=== PATIENT | female | born 1940 | race Caucasian/White ===

== ENCOUNTER 2019-04-06 11:17 | Inpatient (IN) | payer OTHER ==
[~2019-04-06] VITALS: Ht 167.6 cm; Wt 51.3 kg
[~2019-04-06 11:17] MED LIST: AMLO10TA7 PO; CEPH500C2 PO; HYDR25TA PO; TRAM50TA4 PO
[2019-04-06 11:50] LABS: BASOPHILS % (AUTO) 0.4 % (0.0-5.0); EOSINOPHILS % (AUTO) 0.2 % (0.0-8.0); HEMATOCRIT 34.3 % (36-48); LYMPHOCYTES % (AUTO) 6.9 % (21.0-51.0); MEAN CORPUSCULAR HEMOGLOBIN 27.2 pg (27.0-33.0); MEAN CORPUSCULAR HGB CONC 31.9 g/dL (32.0-36.0); MEAN CORPUSCULAR VOLUME 85.3 fL (79-99); MONOCYTES % (AUTO) 6.1 % (3.0-13.0); NEUTROPHILS % (AUTO) 86.4 % (40.0-77.0); PLATELET COUNT (AUTO) 577 K/uL (130-400); RED BLOOD CELL COUNT(AUTO) 4.02 MIL/uL (4.00-5.50); WHITE BLOOD COUNT (AUTO) 14.8 K/uL (4.8-10.8)
[2019-04-06 12:00] LABS: CREATININE 1.1 mg/dL (0.5-1.5); POTASSIUM 4.5 mmol/L (3.5-5.1)
[2019-04-06 12:03] LABS: INR 1.06 (0.85-1.15); PARTIAL THROMBOPLASTIN TIME 34.3 SEC (26.3-35.5); PROTHROMBIN TIME 11.1 SEC (9.6-11.6)
[2019-04-06 12:05] LABS: BILIRUBIN,TOTAL 0.3 mg/dL (0.2-1.0); TOTAL PROTEIN, SERUM 7.9 g/dL (6.0-8.3)
[2019-04-06] MEDS ORDERED: KETOROLAC TROMETHAMINE 15MG/ML ONE (12:20)
[2019-04-06 12:21] LABS: B-TYPE NATRIURETIC PEPTIDE 44 pg/mL (0-100)
[2019-04-06] MEDS ORDERED: ONDANSETRON HCL 4 MG/2 ML VIAL ONE (12:30)
[2019-04-06] MEDS ORDERED: OSELTAMIVIR PHOSPHATE 75 MG CAP ONE (12:31)
[2019-04-06] MEDS ORDERED: SODIUM CHLORIDE 0.9% 1000ML 1,000 ML IV ONE ×3 (12:31→18:31)
[2019-04-06 12:44] LABS: APPEARANCE,URINE Clear (CLEAR); BILIRUBIN,URINE Negative (NEGATIVE); COLOR,URINE Yellow (YELLOW); GLUCOSE, URINE (UA) Negative (NEGATIVE); KETONES,URINE Negative (NEGATIVE); LEUKOCYTE ESTERASE ,URINE Trace (NEGATIVE); NITRATE,URINE Negative (NEGATIVE); OCCULT BLOOD,URINE Negative (NEGATIVE); PROTEIN,URINE POS 1+ mg/dL (NEGATIVE)
[2019-04-06 12:46] LABS: CRP QUANTITATIVE 248.4 mg/L (0.00-9.0)
[2019-04-06] MEDS ORDERED: DiphenhydrAMINE HCL 50 MG/ML VIAL ONE (12:56)
[2019-04-06 13:02] LABS: BACTERIA,URINE Rare /HPF (None Seen); HYALINE CASTS, URINE 0-1 /LPF (0-1 /LPF); MUCUS,URINE Rare LPF (None Seen); RBC,URINE 0-1 /HPF (0-1); SQUAMOUS EPITHELIAL CELL,UR Few /HPF (0-2); WBC,URINE 0-1 /HPF (0-1)
[2019-04-06] MEDS ORDERED: IPRATROPIUM/ALBUTEROL SULFATE 3 ML SOLUTION IH ONE (13:07)
[2019-04-06] MEDS: SODIUM CHLORIDE 0.9% 1000ML 1,000 ML IV SCH (15:52)
[2019-04-06] MEDS ORDERED: ONDANSETRON HCL 4 MG/2 ML VIAL IV PRN (16:00)
[2019-04-06] MEDS ORDERED: ACETAMINOPHEN 325 MG TAB PO PRN ×2 (16:00)
[2019-04-06] MEDS: DOXYCYCLINE 100MG+NS 250ML 250 ML IV SCH (16:00)
[2019-04-06] MEDS ORDERED: HYDRALAZINE HCL 20 MG/ML VIAL IV PRN (16:00)
[2019-04-06] MEDS: METHYLPREDNISOLONE SOD SUCC 125MG/2ML VIAL IV SCH ×2 (16:00→23:53)
[2019-04-06 16:21] LABS: HEMOGLOBIN A1C 7.1 % (4.0-6.0)
[2019-04-06 17:22] LABS: PHOSPHORUS 3.7 mg/dL (2.5-4.9)
[2019-04-06] MEDS: ALBUTEROL SULFATE 0.083% 2.5 MG/3 ML INH IH SCH ×2 (17:34→21:25)
[2019-04-06] MEDS ORDERED: METHYLPREDNISOLONE SOD SUCC 40MG/ML 1ML ONE (18:31)
[2019-04-06] MEDS ORDERED: DOXYCYCLINE 100MG+NS 250ML 250 ML IV ONE (18:31)
[2019-04-06 19:20] VITALS: BP 114/58
--- NOTE | 2019-04-06 19:20 | NUR ---
ADMIT PT RECEIVED FROM PILOT SAFETY INSPECTOR, AAOX3. CLAIMS OF GENERALIZED ACHING WHEN BEING MOVED. ADMISSION CARE DONE. IVF AND IV ANTIBIOTICS FROM ER CONTINUED, PLACED ON IV PUMP. PLACED COMFORTABLY IN BED WITH HOB ELEVATED. V/S MONITORED, STABLE. IN FOR MORE CARE AND MANAGEMENT. Addendum: 04/06/19 at 2150 by TEODORO SHERWOOD RN RN Amended: Links added.
[2019-04-06] MEDS: OSELTAMIVIR PHOSPHATE 75 MG CAP PO SCH (20:20)
[2019-04-06] MEDS: FAMOTIDINE/PF 20 MG/2 ML VIAL IV SCH (20:20)
--- NOTE | 2019-04-06 20:20 | NUR ---
MEDS ASSESSMENT DONE, PLEASE REFER TO CPOE. DUE MEDS ADMINISTERED, TOLERATED WELL. PT OFFERED TYLENOL PO FOR HER ACHES BUT REFUSED AT THIS TIME. CALL LIGHT WITHIN REACH. WILL MONITOR PT.
[2019-04-06] MEDS ORDERED: SODIUM CHLORIDE 3% FOR INHALATION 4 ML/AMP VIAL.NEB IH ONE (21:24)
--- NOTE | 2019-04-06 21:40 | NUR ---
PAGED PT ALREADY ASLEEP WITH RESPIRATIONS EVEN AND UNLABORED. NO DISTRESS NOTED. KEPT UNDISTURBED FOR NOW. MAINTAINED ON O2 AT 2LPM VIA NC. WILL MONITOR PT.
[2019-04-07] VITALS: BP 134/65
[2019-04-07] MEDS: SODIUM CHLORIDE 0.9% 1000ML 1,000 ML IV SCH ×4 (01:07→21:52)
[2019-04-07] MEDS: ALBUTEROL SULFATE 0.083% 2.5 MG/3 ML INH IH SCH ×3 (01:25→10:08)
--- NOTE | 2019-04-07 02:00 | NUR ---
ROUNDS PT RESTING WELL, FAIRLY ASLEEP WITH RESPIRATIONS EVEN AND UNLABORED. NO NOTED DISTRESS. KEPT UNDISTURBED FOR NOW. WILL CONTINUE TO MONITOR. CALL LIGHT WITHIN REACH.
[2019-04-07 04:00] VITALS: BP 120/58
[2019-04-07] MEDS ORDERED: DOXYCYCLINE 100MG+NS 250ML 250 ML IV ONE (04:14)
[2019-04-07] MEDS: DOXYCYCLINE 100MG+NS 250ML 250 ML IV SCH ×2 (04:22→15:42)
--- NOTE | 2019-04-07 05:00 | NUR ---
[facility] PCP IN AND GAVE PT A BED BATH, TOLERATED ACTIVITY WELL. WAFFLE MATTRESS PLACED ON PT'S BED. KEPT RESTED AND COMFORTABLE WITH HOB ELEVATED. MAINTAINED ON O2 AT 2LPM VIA NC. FOR MORE CARE.
[2019-04-07] MEDS ORDERED: SODIUM CHLORIDE 3% FOR INHALATION 4 ML/AMP VIAL.NEB IH ONE ×2 (05:56→09:53)
[2019-04-07 08:00] VITALS: BP 127/57
[2019-04-07] MEDS: CETIRIZINE HCL 5 MG TABLET PO SCH (08:19)
[2019-04-07] MEDS: OSELTAMIVIR PHOSPHATE 75 MG CAP PO SCH ×2 (08:19→20:58)
[2019-04-07] MEDS: METHYLPREDNISOLONE SOD SUCC 125MG/2ML VIAL IV SCH ×2 (08:20→15:42)
[2019-04-07] MEDS: FAMOTIDINE/PF 20 MG/2 ML VIAL IV SCH ×2 (08:20→20:57)
[2019-04-07] MEDS: ENOXAPARIN SODIUM 40 MG/0.4 ML SYRINGE SQ SCH (08:20)
[2019-04-07 12:00] VITALS: BP 107/54
[2019-04-07] MEDS: IPRATROPIUM/ALBUTEROL SULFATE 3 ML SOLUTION IH SCH ×4 (12:00→23:14)
--- NOTE | 2019-04-07 13:57 | NUR ---
Wound Photography taken to sacrum. Sacrum area Reddened with small skin tear 2cmx0.3cm. Wound care pictures taken and place in chart. Sacrum cleansed with Ns, patted dry, Allyvn pad placed on patient and pt placed on left side for offloading.
[2019-04-07 16:00] VITALS: BP 117/61
--- NOTE | 2019-04-07 16:00 | NUR ---
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 HAS DECLINED TO [facility] FOR MANY WEEKS BECAUSE CNANNOT DO BY HERSLEF AND WILL NOT DO WITH THE CAREGIVERES THAT TEND TO HER. HAS PEDRO, WKR, LUCIANO MADRID, W/CHAIR HANDICAPPED BATHROOM, HOME IS WC ACCESSIBLE, NO HOME HEALTH HAS CONSISTANTLY DECLINED SNF- WAS AT [facility] FOR ONE WEEK AND DID NOT PARTICIPATE IN THERAPY. SON EXPRESSES FRUSTRATION., EMILY MOM IS VERY DEPRESSED AND HAS GIVEN UP THE WILL TO LIVE. WILL DISCUSS Kacey VENTURA WHETHER MED REVIEW AND POSSIBLE RX OF ANTIDEPRESSANT WOULD BE APPROPRIATE. SON SAYS WILL GO TO WHATEVER SNF SHE WILL FINALLY AGREE TO. CM TO FOLLOW Addendum: 04/08/19 at 0830 by KAITLIN HARTLEY RN CM Amended: Links added.
[2019-04-07 19:00] VITALS: BP 125/62
--- NOTE | 2019-04-07 20:55 | NUR ---
MEDS SHIFT ASSESSMENT DONE, PLEASE REFER TO CHART. DUE MEDS ADMINISTERED, TOLERATED WELL. PCP IN TO HELP PT WITH DINNER. PCP SET UP FOOD TRAY AND PT ABLE TO FEED HERSELF. CALL LIGHT WITHIN REACH.
[2019-04-08] VITALS (7 sets, daily range): BP systolic 118–137; BP diastolic 53–75
[2019-04-08] MEDS: METHYLPREDNISOLONE SOD SUCC 125MG/2ML VIAL IV SCH ×2 (00:02→08:26)
[2019-04-08] MEDS: SODIUM CHLORIDE 0.9% 1000ML 1,000 ML IV SCH ×2 (00:03→08:28)
--- NOTE | 2019-04-08 00:10 | NUR ---
FOOD PT IS AWAKE AND WANTING SOME FOOD. CLAIMS SHE SLEPT DURING THE DAY AND IS NOW UNABLE TO GO BACK TO SLEEP. DUE MEDS ADMINISTERED. CRACKERS, PEANUT BUTTER AND JUICE PROVIDED FOR PT TO TAKE. KEPT COMFORTABLE IN BED. WILL CONTINUE TO MONITOR.
--- NOTE | 2019-04-08 01:56 | NUR ---
ACHES PT CLAIMS OF GENERALIZED ACHING. MEDICATED WITH TYLENOL PO. POSITIONED COMFORTABLY IN BED. CALL LIGHT WITHIN REACH. WILL RE-ASSESS PT.
[2019-04-08] MEDS: DOXYCYCLINE 100MG+NS 250ML 250 ML IV SCH ×2 (04:01→16:10)
[2019-04-08 05:06] LABS: HEMATOCRIT 28.4 % (36-48); LYMPHOCYTES % (AUTO) 2.1 % (21.0-51.0); MEAN CORPUSCULAR HEMOGLOBIN 27.2 pg (27.0-33.0); MEAN CORPUSCULAR HGB CONC 31.2 g/dL (32.0-36.0); MEAN CORPUSCULAR VOLUME 87.1 fL (79-99); MONOCYTES % (AUTO) 2.1 % (3.0-13.0); NEUTROPHILS % (AUTO) 95.8 % (40.0-77.0); PLATELET COUNT (AUTO) 436 K/uL (130-400); RED BLOOD CELL COUNT(AUTO) 3.27 MIL/uL (4.00-5.50); RED CELL DISTRIBUTION WIDTH 16.7 % (11.0-15.5); WHITE BLOOD COUNT (AUTO) 16.1 K/uL (4.8-10.8)
[2019-04-08 05:17] LABS: CREATININE 0.8 mg/dL (0.5-1.5)
--- NOTE | 2019-04-08 06:10 | NUR ---
ROUNDS PT RESTING WELL, NO DISTRESS NOTED. NO CONCERNS VERBALIZED. KEPT RESTED AND COMFORTABLE. FOR MORE CARE AND MANAGEMENT.
[2019-04-08] MEDS: IPRATROPIUM/ALBUTEROL SULFATE 3 ML SOLUTION IH SCH ×3 (07:01→18:19)
[2019-04-08] MEDS: OSELTAMIVIR PHOSPHATE 75 MG CAP PO SCH ×2 (08:26→22:24)
[2019-04-08] MEDS: FAMOTIDINE/PF 20 MG/2 ML VIAL IV SCH ×2 (08:26→22:24)
[2019-04-08] MEDS: CETIRIZINE HCL 5 MG TABLET PO SCH (08:26)
[2019-04-08] MEDS: ENOXAPARIN SODIUM 40 MG/0.4 ML SYRINGE SQ SCH (08:27)
--- NOTE | 2019-04-08 11:00 | NUR ---
SARAH AGUILERA FROM [facility] IN BUILDING- ASKED PT IF SHE WOULD LIKE TO SPEAK TO PT. ADVISED PT THAT REP 'HAS NOT SEEN CHART AND KNOWS NOTHING ABOUT YOU'. PT AGREED. SNF [facility]DEMAR DONE, STILL PENDING CONSENTT LATER IN DAY, SON AND DAUGHTER AT BEDSIDE. CONSENT FOR [facility] AND [facility] IF [facility] CANNOT SUPPLY PRIVATE ROOM REFERRAL INFO/[facility] WILL SEND IN AM Addendum: 04/09/19 at 1603 by KAITLIN HARTLEY RN CM Amended: Links added.
--- NOTE | 2019-04-08 11:27 | NUR ---
DR BRYAN ROUNDED ON PATIENT AND D/C ASHELY ESQUIVEL AND STARTED PREDNISONE 40 MG PO DAILY TIMES 4 DAY AND START WEANING OFF THE O2
[2019-04-08] MEDS: TRAMADOL HCL 50 MG TABLET PO PRN (15:30)
--- NOTE | 2019-04-08 17:27 | NUR ---
[facility] consult Patient assessed as ordered. Patient with two stage II pressure ulcers present for approximately 2 weeks per patient. Teaching done with patient re: turning/repositioning q 2hrs/prn in order to prevent further breakdown. Patient states she would do so; advised patient to call for assist prn. Waffle mattress in place. [facility] recommendation submitted and report given to patient's nurse, Phyllis MORRIS. Addendum: 04/08/19 at 1730 by DAVIDE SAVAGE RN/ Amended: Links added.
[2019-04-08] MEDS ORDERED: HONEY 1 APPL/ML TUBE TP SCH (18:20)
[2019-04-09] MEDS: IPRATROPIUM/ALBUTEROL SULFATE 3 ML SOLUTION IH SCH ×4 (00:09→18:46)
[2019-04-09] MEDS: TRAMADOL HCL 50 MG TABLET PO PRN (03:07)
[2019-04-09] MEDS: DOXYCYCLINE 100MG+NS 250ML 250 ML IV SCH ×2 (03:07→16:12)
[2019-04-09 04:29] VITALS: BP 142/69
[2019-04-09 06:40] LABS: BASOPHILS % (AUTO) 0.1 % (0.0-5.0); HEMATOCRIT 31.1 % (36-48); LYMPHOCYTES % (AUTO) 4.5 % (21.0-51.0); MEAN CORPUSCULAR HEMOGLOBIN 27.6 pg (27.0-33.0); MEAN CORPUSCULAR HGB CONC 31.7 g/dL (32.0-36.0); MONOCYTES % (AUTO) 4.2 % (3.0-13.0); NEUTROPHILS % (AUTO) 91.2 % (40.0-77.0); PLATELET COUNT (AUTO) 564 K/uL (130-400); RED BLOOD CELL COUNT(AUTO) 3.58 MIL/uL (4.00-5.50); RED CELL DISTRIBUTION WIDTH 16.6 % (11.0-15.5); WHITE BLOOD COUNT (AUTO) 17.9 K/uL (4.8-10.8)
[2019-04-09 06:54] LABS: CREATININE 0.8 mg/dL (0.5-1.5); POTASSIUM 3.9 mmol/L (3.5-5.1)
[2019-04-09 08:00] VITALS: BP 131/82
[2019-04-09] MEDS: PREDNISONE 20 MG TABLET PO SCH (09:20)
[2019-04-09] MEDS: CETIRIZINE HCL 5 MG TABLET PO SCH (09:20)
[2019-04-09] MEDS: AMLODIPINE BESYLATE 5 MG TAB PO SCH (09:21)
[2019-04-09] MEDS: HYDROCHLOROTHIAZIDE 25 MG TABLET PO SCH (09:21)
[2019-04-09] MEDS: FAMOTIDINE/PF 20 MG/2 ML VIAL IV SCH ×2 (09:21→22:42)
[2019-04-09] MEDS: OSELTAMIVIR PHOSPHATE 75 MG CAP PO SCH ×2 (09:21→22:42)
[2019-04-09] MEDS: ENOXAPARIN SODIUM 40 MG/0.4 ML SYRINGE SQ SCH (09:22)
--- NOTE | 2019-04-09 11:18 | NUR ---
DR BRYAN ROUNDED ON PATIENT NO NEW ORDERERS RECEIVED
[2019-04-09 12:00] VITALS: BP 135/64
--- NOTE | 2019-04-09 12:58 | NUR ---
RD Notification Pt with COPD exacerbation and wounds. Upon visit, Pt reports poor PO intake (<50%) with decreased appetite. Pt declines to receive Ensure with meals. RD recommend 60mL ProMod BID for increased protein needs. RD rec to add Jose F BID, Vitamin C, Zinc for wound healing support. Pt monitored labs: BUN 19, Glu 115, Ca 8.3, Alb 2.0. RD to continue to monitor. Please notify RD as additional nutrition concerns arise. Thank you. Addendum: 04/09/19 at [address] Amended: Links added.
[2019-04-09 16:00] VITALS: BP 117/71
[2019-04-09] MEDS: HONEY 1 APPL/ML TUBE TP NR (16:12)
[2019-04-09 20:15] VITALS: BP 125/68
[2019-04-10] MEDS: IPRATROPIUM/ALBUTEROL SULFATE 3 ML SOLUTION IH SCH ×5 (00:04→23:20)
[2019-04-10 00:25] VITALS: BP 150/78
[2019-04-10] MEDS: TRAMADOL HCL 50 MG TABLET PO PRN ×2 (02:01→16:45)
[2019-04-10 04:01] VITALS: BP 144/77
[2019-04-10] MEDS: DOXYCYCLINE 100MG+NS 250ML 250 ML IV SCH ×2 (05:01→15:54)
[2019-04-10] MEDS: LACTULOSE 20 GM/30 ML UDCUP PO PRN ×2 (05:01→18:02)
[2019-04-10 06:16] LABS: BASOPHILS % (AUTO) 0.1 % (0.0-5.0); EOSINOPHILS % (AUTO) 0.2 % (0.0-8.0); HEMATOCRIT 32.5 % (36-48); LYMPHOCYTES % (AUTO) 9.2 % (21.0-51.0); MEAN CORPUSCULAR HEMOGLOBIN 27.5 pg (27.0-33.0); MEAN CORPUSCULAR HGB CONC 32.2 g/dL (32.0-36.0); MEAN CORPUSCULAR VOLUME 85.6 fL (79-99); NEUTROPHILS % (AUTO) 83.5 % (40.0-77.0); PLATELET COUNT (AUTO) 518 K/uL (130-400); RED CELL DISTRIBUTION WIDTH 16.7 % (11.0-15.5)
[2019-04-10 06:23] LABS: CREATININE 0.8 mg/dL (0.5-1.5); POTASSIUM 3.3 mmol/L (3.5-5.1)
[2019-04-10 08:00] VITALS: BP 148/79
[2019-04-10] MEDS ORDERED: POTASSIUM CHLORIDE 20MEQ/100ML 100 ML IV PRN (10:00)
[2019-04-10] MEDS ORDERED: LIDOCAINE HCL-MPF 1% 2ML VIAL IVP PRN (10:00)
[2019-04-10] MEDS ORDERED: POTASSIUM CHLORIDE 10% ELIXIR 20 MEQ/15 ML UDCUP PO PRN (10:00)
[2019-04-10] MEDS: OSELTAMIVIR PHOSPHATE 75 MG CAP PO SCH ×2 (10:31→22:33)
[2019-04-10] MEDS: PREDNISONE 20 MG TABLET PO SCH (10:31)
[2019-04-10] MEDS: FAMOTIDINE/PF 20 MG/2 ML VIAL IV SCH ×2 (10:32→22:33)
[2019-04-10] MEDS: HYDROCHLOROTHIAZIDE 25 MG TABLET PO SCH (10:32)
[2019-04-10] MEDS: CETIRIZINE HCL 5 MG TABLET PO SCH (10:32)
[2019-04-10] MEDS: AMLODIPINE BESYLATE 5 MG TAB PO SCH (10:32)
[2019-04-10] MEDS: POTASSIUM CHLORIDE 20 MEQ ERTAB PO PRN ×3 (10:32→15:55)
[2019-04-10] MEDS: ENOXAPARIN SODIUM 40 MG/0.4 ML SYRINGE SQ SCH (10:33)
[2019-04-10 12:00] VITALS: BP 139/73
[2019-04-10] MEDS ORDERED: MAGNESIUM 2GM PREMIX 50ML 50 ML IV PRN (12:15)
[2019-04-10] MEDS: HONEY 1 APPL/ML TUBE TP NR (13:59)
[2019-04-10 16:00] VITALS: BP 118/61
[2019-04-10 19:00] VITALS: BP 127/71
--- NOTE | 2019-04-10 19:32 | NUR ---
ARTURO ZHENG FOR [facility] ANTICIPATE DISCHARGE IN AM Addendum: 04/10/19 at 1932 by KAITLIN HARTLEY RN CM Amended: Links added.
[2019-04-11] VITALS: BP 130/68
[2019-04-11 03:49] VITALS: BP 125/71
[2019-04-11] MEDS: DOXYCYCLINE 100MG+NS 250ML 250 ML IV SCH ×2 (04:14→15:57)
[2019-04-11 05:04] LABS: BASOPHILS % (AUTO) 0.1 % (0.0-5.0); EOSINOPHILS % (AUTO) 0.1 % (0.0-8.0); LYMPHOCYTES % (AUTO) 8.8 % (21.0-51.0); MEAN CORPUSCULAR HEMOGLOBIN 27.6 pg (27.0-33.0); MEAN CORPUSCULAR HGB CONC 32.3 g/dL (32.0-36.0); MEAN CORPUSCULAR VOLUME 85.6 fL (79-99); MONOCYTES % (AUTO) 4.7 % (3.0-13.0); NEUTROPHILS % (AUTO) 86.3 % (40.0-77.0); PLATELET COUNT (AUTO) 570 K/uL (130-400); RED BLOOD CELL COUNT(AUTO) 3.97 MIL/uL (4.00-5.50); RED CELL DISTRIBUTION WIDTH 16.8 % (11.0-15.5); WHITE BLOOD COUNT (AUTO) 12.9 K/uL (4.8-10.8)
[2019-04-11] MEDS: TRAMADOL HCL 50 MG TABLET PO PRN ×2 (05:21→14:02)
[2019-04-11 05:22] LABS: CREATININE 0.8 mg/dL (0.5-1.5); MAGNESIUM 2.1 mg/dL (1.80-2.40); POTASSIUM 3.7 mmol/L (3.5-5.1)
[2019-04-11] MEDS: IPRATROPIUM/ALBUTEROL SULFATE 3 ML SOLUTION IH SCH ×2 (06:33→11:32)
[2019-04-11 08:00] VITALS: BP 137/67
[2019-04-11] MEDS: POTASSIUM CHLORIDE 20 MEQ ERTAB PO PRN ×2 (08:35→11:36)
[2019-04-11] MEDS: FAMOTIDINE/PF 20 MG/2 ML VIAL IV SCH (08:35)
[2019-04-11] MEDS: ENOXAPARIN SODIUM 40 MG/0.4 ML SYRINGE SQ SCH (08:35)
[2019-04-11] MEDS: OSELTAMIVIR PHOSPHATE 75 MG CAP PO SCH (08:36)
[2019-04-11] MEDS: AMLODIPINE BESYLATE 5 MG TAB PO SCH (08:36)
[2019-04-11] MEDS: HYDROCHLOROTHIAZIDE 25 MG TABLET PO SCH (08:36)
[2019-04-11] MEDS: PREDNISONE 20 MG TABLET PO SCH (08:36)
[2019-04-11] MEDS: CETIRIZINE HCL 5 MG TABLET PO SCH (08:36)
[2019-04-11] MEDS: HONEY 1 APPL/ML TUBE TP NR (11:36)
[2019-04-11 12:00] VITALS: BP 118/63
[2019-04-11 16:00] VITALS: BP 111/57
--- NOTE | 2019-04-11 16:34 | NUR ---
PATIENT DISCHARGE REPORT CALLED TO BARBARA COLUNGA AT [facility], PATIENT'S SON MARISELA CARDENAS WAS CALLED AND [id number] INFORMATION ON DISCHARGE AND FOLLOW UP APPOINTMENT INFORMATION. EMS CONTACTED FOR TRANSPORTATION.
== END 2019-04-11 18:25 | DRG 193 ==
LOC: EDH 11:17 → EDHIP 15:52 → 3AH 18:22
PROVIDERS: ADMIT Internal Medicine; ATTEND Internal Medicine
DX: J10.1 Influenza due to other identified influenza virus with other respiratory manifestations (principal); J96.21 Acute and chronic respiratory failure with hypoxia; J44.1 Chronic obstructive pulmonary disease with (acute) exacerbation; E44.0 Moderate protein-calorie malnutrition; E87.1 Hypo-osmolality and hyponatremia; R64 Cachexia; Z68.1 Body mass index [BMI] 19.9 or less, adult; I10 Essential (primary) hypertension; R73.9 Hyperglycemia, unspecified; Z66 Do not resuscitate; D64.9 Anemia, unspecified; L89.159 Pressure ulcer of sacral region, unspecified stage; M06.9 Rheumatoid arthritis, unspecified; R62.7 Adult failure to thrive; M19.90 Unspecified osteoarthritis, unspecified site; Z74.01 Bed confinement status; Z87.891 Personal history of nicotine dependence; Z79.899 Other long term (current) drug therapy
CPT/HCPCS: 36415; 71045; 80048; 80053; 81001; 82550; 82948; 83036; 83605; 83735; 83880; 84100; 84484; 85025; 85610; 85651; 85730; 86140; 87040; 87071; 87205; 87804; 93005; 94640; 94664; 97039; 99291; G0378; J1200; J1650; J1885; J2405; J2920; J2930; J3475; J3490; J7030

== ENCOUNTER → 2019-05-18 | Outpatient (CLI) | payer OTHER ==
[~2019-05-18] MED LIST changes: -CEPH500C2 PO
[2019-05-18 16:49] VITALS: BP 144/76
== END | disposition home or self-care (01) ==
LOC: WHH 09:30
PROVIDERS: ATTEND Family Medicine
DX: L89.153 Pressure ulcer of sacral region, stage 3 (principal); E46 Unspecified protein-calorie malnutrition; I10 Essential (primary) hypertension; J44.9 Chronic obstructive pulmonary disease, unspecified; M06.9 Rheumatoid arthritis, unspecified; M19.90 Unspecified osteoarthritis, unspecified site; Z87.891 Personal history of nicotine dependence; Z79.899 Other long term (current) drug therapy
CPT/HCPCS: A4450; G0463

== ENCOUNTER → 2019-05-25 | Outpatient (CLI) | payer OTHER ==
[~2019-05-25] MED LIST changes: +LIDOCAINE/PRILOCAINE CREAM 5GM TUBE TP ONE
[2019-05-25 13:36] VITALS: BP 134/76
== END | disposition home or self-care (01) ==
LOC: WHH 09:30
PROVIDERS: ATTEND Family Medicine
DX: L89.153 Pressure ulcer of sacral region, stage 3 (principal); E46 Unspecified protein-calorie malnutrition; I10 Essential (primary) hypertension; J44.9 Chronic obstructive pulmonary disease, unspecified; M06.9 Rheumatoid arthritis, unspecified; M19.90 Unspecified osteoarthritis, unspecified site; Z87.891 Personal history of nicotine dependence; Z79.899 Other long term (current) drug therapy
CPT/HCPCS: 87070; 87077; 87186; A6021; G0463; J3490

== ENCOUNTER → 2019-06-22 | Outpatient (CLI) | payer OTHER ==
[2019-06-22 12:43] VITALS: BP 132/84
== END | disposition home or self-care (01) ==
LOC: WHH 09:15
PROVIDERS: ATTEND Family Medicine
DX: L89.153 Pressure ulcer of sacral region, stage 3 (principal); I10 Essential (primary) hypertension; E46 Unspecified protein-calorie malnutrition; J44.9 Chronic obstructive pulmonary disease, unspecified; M06.9 Rheumatoid arthritis, unspecified; Z79.899 Other long term (current) drug therapy
CPT/HCPCS: 11042; A6021; J3490

== ENCOUNTER → 2019-06-29 | Outpatient (CLI) | payer OTHER ==
[2019-06-29 13:15] VITALS: BP 146/77
== END | disposition home or self-care (01) ==
LOC: WHH 09:30
PROVIDERS: ATTEND Family Medicine
DX: L89.153 Pressure ulcer of sacral region, stage 3 (principal); I10 Essential (primary) hypertension; E46 Unspecified protein-calorie malnutrition; J44.9 Chronic obstructive pulmonary disease, unspecified; M06.9 Rheumatoid arthritis, unspecified; M19.90 Unspecified osteoarthritis, unspecified site; Z79.899 Other long term (current) drug therapy; Z87.891 Personal history of nicotine dependence
CPT/HCPCS: 11042; 87070; A6021; J3490

== ENCOUNTER → 2019-07-13 | Outpatient (CLI) | payer OTHER ==
[2019-07-13 11:20] VITALS: BP 147/78
== END | disposition home or self-care (01) ==
LOC: WHH 09:50
PROVIDERS: ATTEND Family Medicine
DX: L89.153 Pressure ulcer of sacral region, stage 3 (principal); I10 Essential (primary) hypertension; E46 Unspecified protein-calorie malnutrition; J44.9 Chronic obstructive pulmonary disease, unspecified; M19.90 Unspecified osteoarthritis, unspecified site; M06.9 Rheumatoid arthritis, unspecified; Z79.899 Other long term (current) drug therapy; Z87.891 Personal history of nicotine dependence
CPT/HCPCS: 11042; A6022; J3490

== ENCOUNTER → 2019-08-03 | Outpatient (CLI) | payer OTHER ==
[2019-08-03 11:14] VITALS: BP 147/73
== END ==
LOC: WHH 09:30
PROVIDERS: ATTEND Family Medicine
DX: L89.153 Pressure ulcer of sacral region, stage 3 (principal); I10 Essential (primary) hypertension; E46 Unspecified protein-calorie malnutrition; J44.9 Chronic obstructive pulmonary disease, unspecified; M06.9 Rheumatoid arthritis, unspecified; M19.90 Unspecified osteoarthritis, unspecified site; Z79.899 Other long term (current) drug therapy; Z87.891 Personal history of nicotine dependence
CPT/HCPCS: A6022; G0463; J3490

== ENCOUNTER → 2019-08-17 | Outpatient (CLI) | payer OTHER ==
[~2019-08-17] MED LIST changes: -LIDOCAINE/PRILOCAINE CREAM 5GM TUBE TP ONE
[2019-08-17 10:50] VITALS: BP 130/65
== END | disposition home or self-care (01) ==
LOC: WHH 09:15
PROVIDERS: ATTEND Family Medicine
DX: L89.153 Pressure ulcer of sacral region, stage 3 (principal); I10 Essential (primary) hypertension; E46 Unspecified protein-calorie malnutrition; J44.9 Chronic obstructive pulmonary disease, unspecified; M06.9 Rheumatoid arthritis, unspecified; M19.90 Unspecified osteoarthritis, unspecified site; Z79.899 Other long term (current) drug therapy; Z87.891 Personal history of nicotine dependence
CPT/HCPCS: G0463

== ENCOUNTER 2019-09-08 09:00 | Outpatient (CLI) | payer OTHER ==
[2019-09-08 09:41] VITALS: BP 143/83
== END 2019-09-08 10:29 | disposition home or self-care (01) ==
LOC: WHH 09:00
PROVIDERS: ATTEND Emergency Medicine
DX: L89.153 Pressure ulcer of sacral region, stage 3 (principal); I10 Essential (primary) hypertension; E46 Unspecified protein-calorie malnutrition; J44.9 Chronic obstructive pulmonary disease, unspecified; M06.9 Rheumatoid arthritis, unspecified; M19.90 Unspecified osteoarthritis, unspecified site; Z87.891 Personal history of nicotine dependence; Z79.899 Other long term (current) drug therapy
CPT/HCPCS: G0463